=== PATIENT | female | born 1980 | race Caucasian/White ===

== ENCOUNTER 2017-10-08 08:17 | Day surgery (SDC) | payer OTHER ==
[~2017-10-08] VITALS: Ht 172.7 cm; Wt 90.7 kg
[2017-10-08 08:24] VITALS: BP_SYST 151
[2017-10-08] MEDS ORDERED: NACL 0.9% 1,000 ML IV ONE (09:00)
[2017-10-08] MEDS ORDERED: ONDANSETRON HCL 4 MG/2 ML VIAL IVP ONE ×3 (09:00→11:00)
[2017-10-08 09:01] LABS: BASOPHILS # (AUTO) 0.1 K/uL (0.0-0.2); BASOPHILS % (AUTO) 0.8 % (0.0-2.0); EOSINOPHILS # (AUTO) 0.1 K/uL (0.0-0.4); EOSINOPHILS % (AUTO) 1.6 % (0.0-4.0); HEMATOCRIT 39.3 % (36-48); HEMOGLOBIN 13.5 g/dL (12.0-16.0); LYMPHOCYTES % (AUTO) 23.1 % (20.5-51.5); MEAN CORPUSCULAR HEMOGLOBIN 31 pg (27-31); MEAN CORPUSCULAR HGB CONC 34 % (32-36); MEAN CORPUSCULAR VOLUME 91 fL (79.0-98.0); MONOCYTES # (AUTO) 0.3 K/uL (0.0-1.0); MONOCYTES % (AUTO) 3.7 % (1.7-9.3); NEUTROPHILS # (AUTO) 6.1 K/uL (1.8-7.7); NEUTROPHILS % (AUTO) 70.8 % (40.0-70.0); PLATELET COUNT (AUTO) 405 K/uL (130-430); RED CELL DISTRIBUTION WIDTH 12.2 % (9.0-15.0); WHITE BLOOD COUNT (AUTO) 8.6 K/uL (4.8-10.8)
[2017-10-08] MEDS ORDERED: ONDANSETRON HCL 4 MG/2 ML VIAL ONE (09:27)
[2017-10-08] MEDS ORDERED: LORazepam 2 MG/ML VIAL (FOR ER USE) IVP ONE (09:30)
[2017-10-08] MEDS ORDERED: NS 1000 ML IV.SOLN IV ONE (11:00)
[2017-10-08] MEDS ORDERED: SEVOFLURANE 15 MIN GAS INH ONE (11:00)
[2017-10-08] MEDS ORDERED: KETOROLAC TROMETHAMINE 30 MG VIAL IVP ONE (11:00)
[2017-10-08] MEDS ORDERED: LR 1,000 ML IV.SOLN IV ONE (11:00)
[2017-10-08] MEDS ORDERED: PROPOFOL 200MG/ 20ML VIAL (DIPRIVAN) IV ONE (11:00)
[2017-10-08] MEDS ORDERED: DOXYCYCLINE HYCLATE 100 MG VIAL IV ONE (11:00)
[2017-10-08] MEDS ORDERED: fentaNYL CITRATE/PF 100 MCG/2 ML AMP IVP ONE (11:00)
[2017-10-08] MEDS ORDERED: MIDAZOLAM HCL 5 MG/5 ML VIAL IVP ONE (11:00)
[2017-10-08] MEDS ORDERED: ROCURONIUM BROMIDE 10 MG/ML (ZEMURON) IV ONE (11:00)
[2017-10-08] MEDS ORDERED: OXYTOCIN 10 UNIT/ML VIAL IV ONE (11:00)
[2017-10-08] MEDS ORDERED: OXYCODONE/ACETAMINOPHEN 5-325 TABLET PO PRN (11:45)
[2017-10-08] MEDS ORDERED: ONDANSETRON HCL 4 MG/2 ML VIAL IVP PRN (11:45)
[2017-10-08] MEDS ORDERED: HYDROcodone/ACETAMIN 5-325 MG TAB (NORCO/ VICODIN) PO PRN (11:45)
[2017-10-08] MEDS ORDERED: METOCLOPRAMIDE HCL 10 MG/2 ML VIAL IVP PRN ×2 (12:00→12:15)
[2017-10-08] MEDS ORDERED: LR 1,000 ML IV SCH (12:02)
[2017-10-08] MEDS ORDERED: METOCLOPRAMIDE HCL 10 MG/2 ML VIAL ONE (12:09)
[2017-10-08] MEDS ORDERED: MORPHINE 4 MG/ML INJ. SYRINGE IVP PRN ×3 (12:15)
[2017-10-08 12:55] VITALS: BP_SYST 118
== END 2017-10-08 15:37 | disposition home or self-care (01) ==
LOC: SED 08:17 → SDS 09:37 → SMU 09:37 → UNDOADMOB 09:37 → SMU 10:20 → SDS 15:37 → UNDODISOB 15:40
PROVIDERS: ATTEND Specialist
DX: O03.4 Incomplete spontaneous abortion without complication (principal); Z88.0 Allergy status to penicillin; Z88.8 Allergy status to other drugs, medicaments and biological substances; E66.3 Overweight; E03.9 Hypothyroidism, unspecified; F32.9 Major depressive disorder, single episode, unspecified; E16.2 Hypoglycemia, unspecified
CPT/HCPCS: 36415; 59812; 82962; 85025; 86886; 86900; 86901; 88305; 96361; 96374; 96375; 99285; J1885; J2060; J2250; J2405; J2590; J2704; J2765; J3010; J3490; J7030; J7120; G0378